=== PATIENT | female | born 1990 | race Caucasian/White ===

== ENCOUNTER 2019-03-01 11:23 | Emergency (ER) | payer SELFPAY | END 2019-03-01 12:05 | disposition left against medical advice (07) | LOC: ER 11:23 | DX: Z53.21 Procedure and treatment not carried out due to patient leaving prior to being seen by health care provider (principal); R07.9 Chest pain, unspecified ==

== ENCOUNTER 2022-01-06 18:18 | Emergency (ER) | payer OTHER ==
[~2022-01-06] VITALS: Ht 152.4 cm; Wt 86.2 kg
[~2022-01-06 18:18] MED LIST: AMOCLA500 PO; Cipro250 MG PO; FAMO20 PO; OXYACE5T PO; OXYC10TA19 PO; OXYC5 PO; Zofran Odt4 MG SL
[2022-01-06 19:02] LABS: BASOPHILS ABSOLUTE AUTO 0.05 K/mm3 (0.00-0.23); BASOPHILS PERCENT AUTO 1 % (0-2); EOSINOPHILS ABSOLUTE AUTO 0.09 K/mm3 (0.00-0.68); EOSINOPHILS PERCENT AUTO 1 % (0-6); Hematocrit 28.2 % (33.0-51.0); Hemoglobin 8.5 g/dL (11.5-16.0); IMMATURE GRAN ABSOLUTE AUTO 0.01 K/mm3 (0.00-0.10); IMMATURE GRAN PERCENT AUTO 0 % (0-1); LYMPHOCYTES ABSOLUTE AUTO 2.74 K/mm3 (0.84-5.20); LYMPHOCYTES PERCENT AUTO 44 % (21-46); MONOCYTES ABSOLUTE AUTO 0.53 K/mm3 (0.16-1.47); MONOCYTES PERCENT AUTO 9 % (4-13); Mean Corpuscular HGB Conc 30.1 g/dL (31.5-36.5); Mean Corpuscular Volume 80 fL (80-100); Mean Platelet Volume 10.7 fL (9.1-12.4); NEUTROPHILS ABSOLUTE AUTO 2.82 K/mm3 (1.96-9.15); NEUTROPHILS PERCENT AUTO 45 % (41-73); Platelet Count 356 K/mm3 (150-400); RDW Coefficient Variation 16.5 % (11.7-14.2); RDW Standard Deviation 47.2 fL (35.1-46.3); Red Blood Cell Count 3.54 M/mm3 (3.80-5.20); White Blood Cell Count 6.24 K/mm3 (4.00-11.30)
[2022-01-06 19:47] LABS: Alanine Aminotransfer (ALT/SGP 34 U/L (12-78); Albumin, Blood 3.9 g/dL (3.4-5.0); Alk Phos 47 U/L (50-136); Anion Gap 6 mmol/L (6-16); Aspartate Aminotrans (AST/SGOT 22 U/L (12-37); Bilirubin, Total 0.2 mg/dL (0.1-1.0); Blood Urea Nitrogen 21 mg/dL (8-24); Bun/Creatinine Ratio 25.1 (12.0-20.0); CO2, Blood 25 mmol/L (21-32); Calcium, Blood 8.6 mg/dL (8.5-10.1); Chloride, Blood 109 mmol/L (98-108); Creatinine, Blood 0.84 mg/dL (0.40-1.00); Globulin, Blood 3.8 g/dL (2.2-4.0); Glomerular Filtration Rate >60 (60-); Glucose, Blood 98 mg/dL (70-99); Potassium, Blood 3.9 mmol/L (3.5-5.5); Sodium, Blood 140 mmol/L (136-145); Total Protein, Blood 7.7 g/dL (6.4-8.2)
[2022-01-06] MEDS ORDERED: IBU800 M1 PO (21:40)
== END 2022-01-07 00:01 | disposition home or self-care (01) ==
LOC: ER 18:18
PROVIDERS: Physician Assistant
DX: E61.1 Iron deficiency (principal)
CPT/HCPCS: 36415; 80053; 85025; 96374; 99283-25; J1750; J2916

== ENCOUNTER 2022-02-23 08:17 | Day surgery (SDC) | payer OTHER ==
[2022-02-21 09:37] LABS: BASOPHILS ABSOLUTE AUTO 0.03 K/mm3 (0.00-0.23); BASOPHILS PERCENT AUTO 1 % (0-2); EOSINOPHILS ABSOLUTE AUTO 0.11 K/mm3 (0.00-0.68); EOSINOPHILS PERCENT AUTO 2 % (0-6); Hematocrit 37.8 % (33.0-51.0); Hemoglobin 11.8 g/dL (11.5-16.0); IMMATURE GRAN ABSOLUTE AUTO 0.01 K/mm3 (0.00-0.10); IMMATURE GRAN PERCENT AUTO 0 % (0-1); LYMPHOCYTES ABSOLUTE AUTO 1.65 K/mm3 (0.84-5.20); LYMPHOCYTES PERCENT AUTO 32 % (21-46); MONOCYTES ABSOLUTE AUTO 0.62 K/mm3 (0.16-1.47); MONOCYTES PERCENT AUTO 12 % (4-13); Mean Corpuscular HGB 25.8 pg (26.0-34.0); Mean Corpuscular HGB Conc 31.2 g/dL (31.5-36.5); Mean Corpuscular Volume 83 fL (80-100); Mean Platelet Volume 10.7 fL (9.1-12.4); NEUTROPHILS ABSOLUTE AUTO 2.71 K/mm3 (1.96-9.15); NEUTROPHILS PERCENT AUTO 53 % (41-73); Platelet Count 279 K/mm3 (150-400); RDW Coefficient Variation 22.1 % (11.7-14.2); RDW Standard Deviation 66.3 fL (35.1-46.3); Red Blood Cell Count 4.57 M/mm3 (3.80-5.20); White Blood Cell Count 5.13 K/mm3 (4.00-11.30)
[~2022-02-23] VITALS: Ht 152.4 cm; Wt 86.8 kg
[~2022-02-23 08:17] MED LIST changes: +IBU800 M1 PO
[2022-02-23] MEDS ORDERED: LEVOTHYROXINE PO (08:33)
--- NOTE | 2022-02-23 09:13 | NUR ---
Ambulatory in Day Surgery History, Chart, Medications and Allergies reviewed before start of procedure. Lungs clear T/O to Auscultation. Pre-Op teaching done. Pt verbalizes understanding.
--- NOTE | 2022-02-23 18:22 | NUR ---
SHIFT SUMMARY PT POD #0 FOR ROBOTIC TOTAL LAP HYSTER WITH BILATERAL SALPINGECTOMY, EXCISION OF ENDOMETRIOSIS, AND OOPHOROPEXY. 4 LAP SITES WITH STERI STRIPS CDI. PT VERY TIRED AFTER SURGERY AND RESTING IN BED COMFORTABLY. PT EXPERIENCED NAUSEA POST OP AND TREATED PER EMR. TREATED FOR PAIN X1 THIS SHIFT. NOT PASSING GAS YET AND REPORTS SOME GAS PAINS IN HER SHOULDER. VSS. WILL MOST LIKELY DC HOME TOMORROW.
[2022-02-24 02:21] LABS: BASOPHILS ABSOLUTE AUTO 0.01 K/mm3 (0.00-0.23); BASOPHILS PERCENT AUTO 0 % (0-2); EOSINOPHILS PERCENT AUTO 0 % (0-6); Hemoglobin 12.9 g/dL (11.5-16.0); IMMATURE GRAN ABSOLUTE AUTO 0.04 K/mm3 (0.00-0.10); IMMATURE GRAN PERCENT AUTO 0 % (0-1); LYMPHOCYTES ABSOLUTE AUTO 1.04 K/mm3 (0.84-5.20); LYMPHOCYTES PERCENT AUTO 9 % (21-46); MONOCYTES PERCENT AUTO 4 % (4-13); Mean Corpuscular HGB 25.3 pg (26.0-34.0); Mean Corpuscular HGB Conc 30.7 g/dL (31.5-36.5); Mean Corpuscular Volume 83 fL (80-100); NEUTROPHILS ABSOLUTE AUTO 10.37 K/mm3 (1.96-9.15); NEUTROPHILS PERCENT AUTO 87 % (41-73); Platelet Count 350 K/mm3 (150-400); Red Blood Cell Count 5.09 M/mm3 (3.80-5.20); White Blood Cell Count 11.96 K/mm3 (4.00-11.30)
--- NOTE | 2022-02-24 06:07 | NUR ---
PATIENT A&O X4 AND COOPERATIVE. PATIENT BEGAN SUSTAINING HEART RATE IN 120S AFTER 0000. NO S/S BLEEDING. PATIENT INITIALLY DENIED SOB, DIZZINESS, N/V, OR PAIN. DR. TAN WAS CALLED, AND 1,000 ML NS WAS ORDERED AT 250 ML/HR. LATER IN THE SHIFT, PATIENT COMPLAINED OF 7/10 ABD PAIN. PATIENT WAS MEDICATED WITH PERCOCET PER EMAR. NO OTHER ACUTE CHANGES THIS SHIFT.
[2022-02-24] MEDS ORDERED: Percocet 5-3251 EACH PO (11:33)
[2022-02-24] MEDS ORDERED: PROM25 PO (11:34)
[2022-02-24] MEDS ORDERED: SIME80CH PO (11:34)
--- NOTE | 2022-02-24 12:33 | NUR ---
DC'D HOME, DC INSTRUCTIONS GIVEN, VERBALIZED UNDERSTANDING.
== END 2022-02-24 12:17 | disposition home or self-care (01) ==
LOC: ORSCMMR 08:17 → ORD 09:45 → SURS 14:33 → ORSCMMR 02-24 12:17
PROVIDERS: Obstetrics & Gynecology
PROC: 0UT74ZZ Resection of Bilateral Fallopian Tubes, Percutaneous Endoscopic Approach (ICD-10-PCS; principal; 2022-02-23 09:45)
PROC: 0U5F4ZZ Destruction of Cul-de-sac, Percutaneous Endoscopic Approach (ICD-10-PCS; principal; 2022-02-23 09:45)
PROC: 0UT94ZZ Resection of Uterus, Percutaneous Endoscopic Approach (ICD-10-PCS; principal; 2022-02-23 09:45)
PROC: 8E0W4CZ Robotic Assisted Procedure of Trunk Region, Percutaneous Endoscopic Approach (ICD-10-PCS; principal; 2022-02-23 09:45)
DX: N92.1 Excessive and frequent menstruation with irregular cycle (principal); N94.6 Dysmenorrhea, unspecified; D50.0 Iron deficiency anemia secondary to blood loss (chronic); N80.3 Endometriosis of pelvic peritoneum; N80.0 Endometriosis of uterus; N83.8 Other noninflammatory disorders of ovary, fallopian tube and broad ligament; E03.9 Hypothyroidism, unspecified; Z87.891 Personal history of nicotine dependence; Z79.899 Other long term (current) drug therapy; E28.2 Polycystic ovarian syndrome; E66.9 Obesity, unspecified; Z68.37 Body mass index [BMI] 37.0-37.9, adult
CPT/HCPCS: 58571; 58662; S2900; 36415; 84702; 85025; 86850; 86900; 86901; 88305; 88307; A9270; J0690; J1100; J1885; J2250; J2405; J2550; J2704; J3010; J7030; J7120